=== PATIENT | male | born 2005 | race Caucasian/White ===

== ENCOUNTER 2024-01-05 12:30 | Inpatient (IN) | payer SELFPAY ==
[2024-01-05 12:34] VITALS: BP 127/82; PULSE 93; RESP 18; TEMP 36.6; O2SAT 99
[2024-01-05 12:41] VITALS: BMI 22.3
[2024-01-05 13:55] VITALS: BP 111/70; PULSE 95; RESP 18; TEMP 36.9; O2SAT 99
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
[2024-01-05] MEDS: hyDROXYzine 25 mg Capsule 50 MG PO (21:07)
[2024-01-05] MEDS: trazodone 50 mg Tablet PO (21:07)
[2024-01-05 21:08] VITALS: BP 124/75; PULSE 79; RESP 15; TEMP 36.9; O2SAT 99
[2024-01-06 06:00] VITALS: BP 90/59; PULSE 95; RESP 13; TEMP 36.6; O2SAT 98
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
[2024-01-06] MEDS: sertraline 50 mg Tablet 25 MG PO (13:44)
[2024-01-06 14:00] VITALS: BP 127/63; PULSE 75; RESP 16; TEMP 36.6; O2SAT 99
[2024-01-06] MEDS: hyDROXYzine 25 mg Capsule 50 MG PO (20:19)
[2024-01-06] MEDS: trazodone 50 mg Tablet PO (20:19)
[2024-01-06 20:35] VITALS: BP 132/82; PULSE 82; RESP 17; TEMP 36.3; O2SAT 97
--- NOTE | 2024-01-06 21:37 | ECG_ITS ---
[facility] Test Date: 2024-01-06 Pat Name: Patrick Regalado Department: Room: 127 Gender: Male Communications Department Chair: : 2005 Requested By: Yony Keen Order Number: [id number] Denisse MD: Jules Gallagher M.D. Measurements Intervals [place] Rate: 74 P: 69 WY: 132 QRS: 61 QRSD: 89 T: 56 QT: 348 QTc: 387 Interpretive Statements SINUS RHYTHM WITH MARKED SINUS ARRHYTHMIA ST ELEVATION, PROBABLY EARLY REPOLARIZATION [ST ELEVATION WITH NORMALLY INFLECTED T-WAVE] TALL T-WAVES, SUGGESTS HYPERKALEMIA No previous ECG available for comparison Electronically Signed On 01-07-2024 11:58:03 CDT by Jules Gallagher M.D. [email or web address] adult care [email or web address] county memorial hospital [id number]
[2024-01-06 23:49] LABS: Alanine Aminotransferase 10 U/L (0-41); Albumin Level 4.1 g/dL (3.5-5.2); Alkaline Phosphatase 62 U/L (40-130); Anion Gap 15.2 (5-19); Aspartate Amino Transferase 12 U/L (0-40); Blood Urea Nitrogen 16 mg/dL (6-20); Carbon Dioxide 26 mmol/L (22-29); Chloride 106 mmol/L (98-107); Creatinine Clr Calc Pharmacy 118.3604; Globulin 2.3 g/dL (1.3-4.6); Glomerular Filtration Rate 108.7 mL/min (90-130); Glucose 118 mg/dL (65-115); Osmolality Calculated 298 mOsm/kg (285-295); Potassium 4.2 mmol/L (3.5-5.1); Sodium 143 mmol/L (136-145); Total Bilirubin 0.3 mg/dL (0.15-1.2); Total Protein 6.4 g/dL (6.6-8.7)
[2024-01-07 06:00] VITALS: BP 103/66; PULSE 80; RESP 15; TEMP 36.8; O2SAT 97
[2024-01-07] MEDS: sertraline 50 mg Tablet 25 MG PO (08:59)
--- NOTE | 2024-01-07 12:31 | W.PM.NPUPNS ---
Subjective NPU Subjective: Patient presented today reporting that he is doing okay. He reports that he does not feel any significant suicidal thinking since he came to the hospital and even before then. He feels that he has these episodes regular really bad once a year. He feels the medication is helpful but that those moments are hard when they occur. He denied any side effects of the medication. Mental Status Exam MSE Comments: This is a slender white male in hospital scrubs with limited grooming but adequate eye contact. No abnormal movements except for mild psychomotor retardation. Cooperative with exam in mild distress. Speech was decreased rate and volume. Mood described as getting better, affect subdued. Thought process organized. Thought content: Patient denied current suicidal or homicidal ideation, there is no delusions reported or noted, he denied any auditory or visual hallucinations. Attention and concentration appeared intact and memory was somewhat reliable but no more formally tested. His insight is poor. His judgment is limited. His impulse control appeared poor. Vitals/I&O/Wt Last Vital Signs Temp 98.3 F 01/07/24 06:00 Pulse 80 01/07/24 06:00 Resp 15 01/07/24 06:00 BP 103/66 01/07/24 06:00 Pulse Ox 97 01/07/24 06:00 O2 Del Method Room Air 01/07/24 06:00 Weight last 48 hrs Weight 62.766 kg Data NPU 01/06/24 23:11 A&P Assessment and plan (1) Major depressive disorder, single episode, severe: (2) Generalized anxiety disorder: Plan 18-year-old male with no prior history of substance abuse or psychiatric treatment admitted with a history of ongoing depression and current suicidal ideation. Patient would likely benefit from acute inpatient hospitalization. #1.? Engage patient in individual milieu and group therapy. #2?? Recommend sober living treatment at the highest level of care to which the patient is willing to commit #3??? Initiated Zoloft 25mg daily to target depression. #4?? TO-15 minute checks Attestations NPU Medical Necessity Statement*: Inpatient hospitalization is medically necessary and the clinically appropriate intervention ?at this time.? We will monitor/initiate medications and make changes as indicated.?The patient?s likely length of stay 4-6 days. Coding Level of Care Code Acute Code for [facility] Fwd Diagnoses Major depressive disorder, single episode, severe F32.2 Generalized anxiety disorder F41.1
[2024-01-07 14:00] VITALS: BP 127/80; PULSE 77; RESP 16; TEMP 36.8; O2SAT 98
[2024-01-07 19:55] VITALS: BP 122/70; PULSE 84; RESP 16; TEMP 37.1; O2SAT 99
[2024-01-07] MEDS: trazodone 50 mg Tablet PO (20:06)
[2024-01-08 06:00] VITALS: BP 113/67; PULSE 92; RESP 17; TEMP 36.7; O2SAT 97
[2024-01-08] MEDS: sertraline 50 mg Tablet 25 MG PO (08:40)
--- NOTE | 2024-01-08 12:08 | P.NPUPN_ITS ---
Subjective NPU 2 Subjective: Patient presented today reporting that he was feeling a little better. His grandmother and mother visited and felt like things were improving. We discussed that our goal was to make sure that he had follow-up appointments so that he did not drop the ball this time in continuing his aftercare or at least continuing with follow-ups. He denied any side effects to the medication and we discussed the low dose that he was on and the need to increase the medication. We discussed the likelihood of discharge in the next 48 hours. Mental Status Exam 2 MSE Comments: This is a slender white male in hospital scrubs with limited grooming but adequate eye contact. No abnormal movements except for mild psychomotor retardation. Cooperative with exam in mild distress. Speech was decreased rate and volume. Mood described as getting better, affect subdued. Thought process organized. Thought content: Patient denied current suicidal or homicidal ideation, there is no delusions reported or noted, he denied any auditory or visual hallucinations. Attention and concentration appeared intact and memory was somewhat reliable but no more formally tested. His insight is poor. His judgment is limited. His impulse control appeared poor. Vitals/I&O/Wt Last Vital Signs Temp 98.1 F 01/08/24 06:00 Pulse 92 01/08/24 06:00 Resp 17 01/08/24 06:00 BP 113/67 01/08/24 06:00 Pulse Ox 97 01/08/24 06:00 O2 Del Method Room Air 01/08/24 06:00 Data NPU 01/06/24 23:11 A&P Assessment and plan (1) Major depressive disorder, single episode, severe: (2) Generalized anxiety disorder: Plan 18-year-old male with no prior history of substance abuse or psychiatric treatment admitted with a history of ongoing depression and current suicidal ideation. Patient would likely benefit from acute inpatient hospitalization. #1.? Engage patient in individual milieu and group therapy. #2?? Recommend sober living treatment at the highest level of care to which the patient is willing to commit #3??? Initiated Zoloft 25mg daily to target depression. #4?? TO-15 minute checks Attestations NPU 2 Medical Necessity Statement*: Inpatient hospitalization is medically necessary and the clinically appropriate intervention ?at this time.? We will monitor/initiate medications and make changes as indicated.?The patient?s likely length of stay 2-5 days. Coding Level of Care Code Acute Code for [facility] Fwd Diagnoses Major depressive disorder, single episode, severe F32.2 Generalized anxiety disorder F41.1
[2024-01-08 14:00] VITALS: BP 133/84; PULSE 85; RESP 17; TEMP 36.8; O2SAT 98
[2024-01-08] MEDS: trazodone 50 mg Tablet PO (20:12)
[2024-01-08 20:36] VITALS: BP 139/86; PULSE 83; RESP 18; TEMP 36.4; O2SAT 98
[2024-01-09 06:00] VITALS: BP 106/62; PULSE 84; RESP 17; TEMP 36.9; O2SAT 95
[2024-01-09] MEDS: sertraline 50 mg Tablet 25 MG PO ×2 (08:41→09:14)
--- NOTE | 2024-01-09 09:03 | P.NPUPN_ITS ---
Subjective NPU 2 Subjective: Patient presented today reporting that he is continuing to feel better. He reports his family is supportive of the idea of him discharging tomorrow. He reports he feels confident that he is ready to get back to his life and being safe. We discussed the importance of follow-up for his ongoing wellness. He denied any side effects of the medication and we discussed the risks benefits and alternatives of increasing his Zoloft to 50 mg and he understood and agreed to proceed as is documented in this note. Mental Status Exam 2 MSE Comments: This is a slender white male in hospital scrubs with limited grooming but adequate eye contact. No abnormal movements except for mild psychomotor retardation. Cooperative with exam in mild distress. Speech was decreased rate and volume. Mood described as getting better, affect brighter. Thought process organized. Thought content: Patient denied current suicidal or homicidal ideation, there is no delusions reported or noted, he denied any auditory or visual hallucinations. Attention and concentration appeared intact and memory was somewhat reliable but no more formally tested. His insight is poor. His judgment is limited. His impulse control appeared poor. Vitals/I&O/Wt Last Vital Signs Temp 98.5 F 01/09/24 06:00 Pulse 84 01/09/24 06:00 Resp 17 01/09/24 06:00 BP 106/62 01/09/24 06:00 Pulse Ox 95 01/09/24 06:00 O2 Del Method Room Air 01/09/24 06:00 Weight last 48 hrs Weight 67.495 kg Data NPU 01/06/24 23:11 A&P Assessment and plan (1) Major depressive disorder, single episode, severe: (2) Generalized anxiety disorder: Plan 18-year-old male with no prior history of substance abuse or psychiatric treatment admitted with a history of ongoing depression and current suicidal ideation. Patient would likely benefit from acute inpatient hospitalization. #1.? Engage patient in individual milieu and group therapy. #2?? Recommend sober living treatment at the highest level of care to which the patient is willing to commit #3???Increased Zoloft to 50 mg p.o. daily #4?? TO-15 minute checks 5. Discussed possibility of discharge tomorrow. Attestations NPU 2 Medical Necessity Statement*: Inpatient hospitalization is medically necessary and the clinically appropriate intervention ?at this time.? We will monitor/initiate medications and make changes as indicated.?The patient?s likely length of stay 1-3 days. Coding Level of Care Code Acute Code for [facility] Fwd Diagnoses Major depressive disorder, single episode, severe F32.2 Generalized anxiety disorder F41.1
[2024-01-09 14:00] VITALS: BP 124/71; PULSE 77; RESP 16; TEMP 36.4; O2SAT 98
[2024-01-09 20:06] VITALS: BP 129/53; PULSE 77; RESP 18; TEMP 36.7; O2SAT 98
[2024-01-09] MEDS: trazodone 50 mg Tablet PO (20:16)
[2024-01-10 06:00] VITALS: BP 99/67; PULSE 82; RESP 16; TEMP 36.4; O2SAT 98
[2024-01-10] MEDS: sertraline 50 mg Tablet PO (08:43)
--- NOTE | 2024-01-10 13:10 | P.NPUDS_ITS ---
Diagnoses at Discharge Discharge Diagnosis (1) Major depressive disorder, single episode, severe: Status: Acute (2) Generalized anxiety disorder: Status: Acute Reason for Visit Reason for Visit: SI Mental Status Exam MSE Comments: This is a slender white male in hospital scrubs with limited grooming but adequate eye contact. No abnormal movements except for mild psychomotor retardation. Cooperative with exam in mild distress. Speech was decreased rate and volume. Mood described as getting better, affect brighter. Thought process organized. Thought content: Patient denied current suicidal or homicidal ideation, there is no delusions reported or noted, he denied any auditory or visual hallucinations. Attention and concentration appeared intact and memory was somewhat reliable but no more formally tested. His insight is poor. His judgment is limited. His impulse control appeared poor. Discharge Data Studies Completed and Pending: Laboratory Results Sodium 143 mmol/L (136-1 45) 01/06/24 23:11 Potassium 4.2 mmol/L (3.5-5 .1) 01/06/24 23:11 Chloride 106 mmol/L (98-10 7) 01/06/24 23:11 Carbon Dioxide 26 mmol/L (22-29) 01/06/24 23:11 Anion Gap 15.2 (5-19) 01/06/24 23:11 BUN 16 mg/dL (6-20) 01/06/24 23:11 Creatinine 0.9 mg/dL (0.7-1. 2) 01/06/24 23:11 GFR Calculation 108.7 mL/min (90- 130) 01/06/24 23:11 Glucose 118 mg/dL (65-115 ) H 01/06/24 23:11 Calculated Osmolal ity 298 mOsm/kg (285- 295) H 01/06/24 23:11 Calcium 9.0 mg/dL (8.5-10 .5) 01/06/24 23:11 Total Bilirubin 0.3 mg/dL (0.15-1 .2) 01/06/24 23:11 AST 12 U/L (0-40) 01/06/24 23:11 ALT 10 U/L (0-41) 01/06/24 23:11 Alkaline Phosphata se 62 U/L (40-130) 01/06/24 23:11 Total Protein 6.4 g/dL (6.6-8.7 ) L 01/06/24 23:11 Albumin 4.1 g/dL (3.5-5.2 ) 01/06/24 23:11 Globulin 2.3 g/dL (1.3-4.6 ) 01/06/24 23:11 Vitals: Last Vital Signs Temp 97.6 F 01/10/24 06:00 Pulse 82 01/10/24 06:00 Resp 16 01/10/24 06:00 BP 99/67 01/10/24 06:00 Pulse Ox 98 01/10/24 06:00 O2 Del Method Room Air 01/09/24 06:00 Discharge Plan Discharge Condition: Stable Prescriptions: New trazodone 50 mg Tablet 50 mg PO BEDTIME PRN (Reason: Sleep) 30 Days Qty: 30 1RF sertraline 50 mg Tablet 50 mg PO DAILY 30 Days Qty: 30 1RF No Action No Known Home Medications Discharge Orders: Discharge Order (Routine); Ordered 01/10/24 Ordered By: Brian Treviño Discharge Diet: Cardiac Discharge Activity: Resume usual activity Patient Instructions: Opioid Safety Discharge Attestations NPU Time Spent in Discharge Care*: less than 30 min Specific Discharge Activities: Specific discharge activities: educating patient, discussing with lead case manager/social workers/dc planners, documenting/other paperwork and evaluating patient/reviewing data Coding Level of Care Code Acute Code for [facility] Fwd Diagnoses Major depressive disorder, single episode, severe F32.2 Generalized anxiety disorder F41.1
[2024-01-10 13:14] VITALS: BP 99/67; PULSE 82; RESP 16; TEMP 36.4; O2SAT 98
[2024-01-10 13:43] VITALS: BP 111/71; PULSE 84; RESP 16; TEMP 36.5; O2SAT 97
== END 2024-01-10 17:40 | disposition home or self-care (01) | DRG 885 ==
PROVIDERS: Psychiatry & Neurology Psychiatry; Admitting Provider Psychiatry & Neurology Psychiatry; Visit Provider Psychiatry & Neurology Psychiatry
DX: F32.2 Major depressive disorder, single episode, severe without psychotic features (principal); R45.851 Suicidal ideations; F41.1 Generalized anxiety disorder
CPT/HCPCS: 36415; 80053; 93005; 97150; 97165